=== PATIENT | male | born 1965 | race Caucasian/White ===

== ENCOUNTER 2022-04-30 11:28 | Day surgery (SDC) | payer OTHER ==
[~2022-04-30] VITALS: Ht 175.3 cm; Wt 92.1 kg
[~2022-04-30 11:28] MED LIST: Augmentin 875-1 EACH PO; CLIN300 PO; CYCL10 PO; HYDACE5 PO; IBUP600 PO; NAPR500 PO; Naprosyn500 MG PO; Norco 5-325 Ta1 EACH PO; TERB250 PO; TRAM50 PO; Ultram50 MG PO
[2022-04-30] MEDS ORDERED: ATOR10 PO (12:26)
--- NOTE | 2022-04-30 12:40 | NUR ---
04/30/22 1240 Anna Marie Ann BLOCK PLACED BY DR. BLANCO WITHOUT DIFFICULTY. PT TOLERATED PROCEDURE WELL.
--- NOTE | 2022-04-30 14:29 | NUR ---
[facility]22 [facility]29 [facility] AMIS[facility] TO R HAND FOR CARPAL TUNNEL PROCEDURE PER DR VU'S ORDERS
== END 2022-04-30 13:42 | disposition home or self-care (01) ==
LOC: ORSCSDS 11:28
PROVIDERS: Orthopaedic Surgery
PROC: 01N50ZZ Release Median Nerve, Open Approach (ICD-10-PCS; principal; 2022-04-30 12:45)
DX: G56.01 Carpal tunnel syndrome, right upper limb (principal); E78.00 Pure hypercholesterolemia, unspecified; E66.9 Obesity, unspecified; Z68.30 Body mass index [BMI] 30.0-30.9, adult; Z87.891 Personal history of nicotine dependence; Z79.899 Other long term (current) drug therapy
CPT/HCPCS: J0171; J0690; J2250; J2704; J2795; J3010; J7120

== ENCOUNTER 2022-11-01 18:19 | Emergency (ER) | payer OTHER ==
[~2022-11-01] VITALS: Ht 175.3 cm; Wt 90.7 kg
[~2022-11-01 18:19] MED LIST changes: +ATOR10 PO
[2022-11-01 19:05] LABS: BASOPHILS ABSOLUTE AUTO 0.08 K/mm3 (0.00-0.23); BASOPHILS PERCENT AUTO 1 % (0-2); EOSINOPHILS ABSOLUTE AUTO 0.17 K/mm3 (0.00-0.68); EOSINOPHILS PERCENT AUTO 1 % (0-6); Hematocrit 47.5 % (37.0-53.0); Hemoglobin 16.9 g/dL (13.5-17.5); IMMATURE GRAN ABSOLUTE AUTO 0.06 K/mm3 (0.00-0.10); IMMATURE GRAN PERCENT AUTO 0 % (0-1); LYMPHOCYTES ABSOLUTE AUTO 2.38 K/mm3 (0.84-5.20); LYMPHOCYTES PERCENT AUTO 16 % (21-46); MONOCYTES ABSOLUTE AUTO 1.03 K/mm3 (0.16-1.47); MONOCYTES PERCENT AUTO 7 % (4-13); Mean Corpuscular HGB Conc 35.6 g/dL (31.5-36.5); Mean Corpuscular Volume 87 fL (80-100); Mean Platelet Volume 10.5 fL (9.1-12.4); NEUTROPHILS ABSOLUTE AUTO 10.98 K/mm3 (1.96-9.15); NEUTROPHILS PERCENT AUTO 75 % (41-73); Platelet Count 227 K/mm3 (150-400); RDW Standard Deviation 41.1 fL (35.1-46.3); Red Blood Cell Count 5.46 M/mm3 (4.30-5.90)
[2022-11-01 19:21] LABS: Albumin, Blood 3.9 g/dL (3.4-5.0); Bilirubin, Total 0.8 mg/dL (0.1-1.0); Bun/Creatinine Ratio 7.9 (12.0-20.0); Calcium, Blood 9.1 mg/dL (8.5-10.1); Creatinine, Blood 1.01 mg/dL (0.60-1.20); Globulin, Blood 3.8 g/dL (2.2-4.0); Potassium, Blood 3.4 mmol/L (3.5-5.5); Total Protein, Blood 7.7 g/dL (6.4-8.2)
[2022-11-02] VITALS: BP 141/89
== END 2022-11-02 00:20 | disposition home or self-care (01) ==
LOC: ER 18:19
PROVIDERS: Student in an Organized Health Care Education/Training Program
DX: R07.9 Chest pain, unspecified (principal); E78.5 Hyperlipidemia, unspecified; F17.210 Nicotine dependence, cigarettes, uncomplicated; Z79.899 Other long term (current) drug therapy
CPT/HCPCS: 71045; 80053; 83690; 84484; 85025; 93005; 93010; 99285-25; A9270